=== PATIENT | female | born 1960 ===

== ENCOUNTER → 2019-05-22 15:11 | Outpatient (CLI) | payer MEDICAID ==
[2019-05-22 17:08] LABS: BASOPHILS 0.8 % (0-2); EOSINOPHILS 10.4 % (0-7); HEMATOCRIT 39.9 % (36.0-48.0); HEMOGLOBIN 12.5 g/dL (12-16); IMMATURE GRANULOCYTES 0.1 % (0-5); LYMPHOCYTES 32.4 % (15-50); MCH 30.4 pg (26.0-34.0); MCHC 31.3 g/dL (31.0-37.0); MCV 97.1 fL (80.0-100.0); MEAN PLATELET VOLUME 9.4 fL (7.4-10.4); MONOCYTES 8.4 % (2-11); NEUTROPHILS 47.9 % (40-80); PLATELET COUNT 298 10x3/uL (130-400); RBC 4.11 10x6/uL (4.00-5.40); RDW 13.2 % (11.5-14.5); WBC 7.1 10x3/uL (4.8-10.8)
[2019-05-22 17:26] LABS: CREATININE - SERUM 0.7 mg/dL (0.6-1.3); VANCOMYCIN - TROUGH 14.9 ug/mL (10.0-20.0)
== END | disposition home or self-care (01) ==
LOC: D.LABREF 15:11
PROVIDERS: ATTEND Family Medicine
DX: M46.46 Discitis, unspecified, lumbar region (principal)

== ENCOUNTER → 2019-05-29 22:35 | Outpatient (CLI) | payer MEDICAID ==
[2019-05-29 23:06] LABS: CREATININE - SERUM 0.7 mg/dL (0.6-1.3); VANCOMYCIN - TROUGH 11.5 ug/mL (10.0-20.0)
== END | disposition home or self-care (01) ==
LOC: D.LABREF 22:35
PROVIDERS: ATTEND Family Medicine
DX: I33.0 Acute and subacute infective endocarditis (principal)

== ENCOUNTER → 2019-06-05 15:15 | Outpatient (CLI) | payer MEDICAID ==
[2019-06-05 16:09] LABS: CREATININE - SERUM 0.7 mg/dL (0.6-1.3); VANCOMYCIN - TROUGH 9.7 ug/mL (10.0-20.0)
== END | disposition home or self-care (01) ==
LOC: D.LABREF 15:15
PROVIDERS: ATTEND Family Medicine
DX: I33.0 Acute and subacute infective endocarditis (principal)